=== PATIENT | male | born 1955 | race Caucasian/White ===

== ENCOUNTER 2022-08-18 05:47 | Inpatient (IN) | payer MEDICARE ==
[2022-08-17 12:30] LABS: BASOPHILS # (AUTO) 0.1 (0.0-0.1); BASOPHILS % 0.8 % (0.0-1.0); EOSINOPHILS # (AUTO) 0.3 (0.0-0.4); EOSINOPHILS % 3.7 % (0.0-6.0); HEMATOCRIT 47.7 % (38.2-49.6); HEMOGLOBIN 15.6 g/dL (14.0-18.0); LYMPHOCYTES # (AUTO) 1.9 (1.0-3.2); LYMPHOCYTES % 25.8 % (18.0-39.1); MEAN CORPUSCULAR HEMOGLOBIN 29.3 pg (28-32); MEAN CORPUSCULAR HGB CONC 32.7 g/dL (31-35); MEAN CORPUSCULAR VOLUME 89.5 fL (81-99); MONOCYTES # (AUTO) 0.8 (0.2-0.8); MONOCYTES % 11.1 % (4.4-11.3); NEUTROPHILS # (AUTO) 4.3 (2.1-6.9); NEUTROPHILS % 57.8 % (38.7-80.0); PLATELET COUNT 238 x10e3/uL (140-360); RED BLOOD COUNT 5.33 x10e6/uL (4.3-5.7); RED CELL DISTRIBUTION WIDTH 13.5 % (11.7-14.4)
[2022-08-17 12:52] LABS: ANION GAP 14.4 mmol/L (8-16); CALCIUM 9.1 mg/dL (8.4-10.2); CREATININE, SERUM 1.02 mg/dL (0.72-1.25); POTASSIUM 4.4 mmol/L (3.5-5.1)
[~2022-08-18] VITALS: Ht 182.9 cm; Wt 142.9 kg
[~2022-08-18 05:47] MED LIST: ASPIRIN81 MG PO; FINASTERIDE5 MG PO; FLOMAX0.4 MG PO; ISOSORBIDE MONO30 MG PO; LISINOPRIL2.5 MG PO; METOPROLOL TART50 MG PO; OXYBUTYNIN CHLOR5 MG PO; SIMVASTATIN20 MG PO; WARFARIN SODIUM3 MG PO
[2022-08-18] MEDS ORDERED: SODIUM CHLORIDE 0.9% 250ML 250 ML ONE (06:31)
[2022-08-18] MEDS ORDERED: GENTAMICIN 80MG/NS 100 ML 200 ML IV ONE (06:31)
[2022-08-18] MEDS ORDERED: Vancomycin IV 1 GM VIAL ONE (06:31)
[2022-08-18] MEDS ORDERED: SODIUM CHLORIDE 0.9% 1000ML 1,000 ML ONE (06:32)
[2022-08-18 07:21] LABS: INR 1.03; PROTHROMBIN TIME 14.4 seconds (11.9-14.5)
[2022-08-18 07:22] LABS: PARTIAL THROMBOPLASTIN TIME 30.1 seconds (23.8-35.5)
[2022-08-18] MEDS ORDERED: B&O 60MG R/S 60 MG SUPP PR ONE (07:44)
[2022-08-18] MEDS ORDERED: IOPAMIDOL 610MG/1ML 300 MG/ML VIAL IV ONE (07:44)
[2022-08-18] MEDS ORDERED: PIPERACILLIN/TAZOBACTAM 3.375 GM VIAL ONE (09:32)
[2022-08-18] MEDS ORDERED: ONDANSETRON HCL INJ 2MG/ML 2ML 2 MG/ML VIAL IV PRN (11:15)
[2022-08-18] MEDS ORDERED: DIPHENHYDRAMINE HCL 25 MG CAP PO PRN (11:15)
[2022-08-18] MEDS ORDERED: B&O 60MG R/S 60 MG SUPP PR PRN (11:15)
[2022-08-18] MEDS ORDERED: ACETAMINOPHEN/CODEINE 300MG - 30MG TAB PO PRN (11:15)
[2022-08-18] MEDS ORDERED: PHENAZOPYRIDINE HCL 100 MG TAB PO PRN (11:15)
[2022-08-18] MEDS ORDERED: PROMETHAZINE HCL (IM) 25 MG/ML VIAL IM ONE (11:27)
[2022-08-18] MEDS ORDERED: FENTANYL CITRATE/PF 100MCG/2 ML INJ ONE ×2 (11:28→12:49)
[2022-08-18 12:19] LABS: BASOPHILS % 0.4 % (0.0-1.0); EOSINOPHILS # (AUTO) 0.1 (0.0-0.4); EOSINOPHILS % 0.7 % (0.0-6.0); HEMATOCRIT 46.1 % (38.2-49.6); HEMOGLOBIN 14.6 g/dL (14.0-18.0); LYMPHOCYTES # (AUTO) 1.1 (1.0-3.2); LYMPHOCYTES % 13.5 % (18.0-39.1); MEAN CORPUSCULAR HEMOGLOBIN 29.3 pg (28-32); MEAN CORPUSCULAR HGB CONC 31.7 g/dL (31-35); MEAN CORPUSCULAR VOLUME 92.4 fL (81-99); MONOCYTES # (AUTO) 0.2 (0.2-0.8); MONOCYTES % 2.9 % (4.4-11.3); NEUTROPHILS # (AUTO) 6.7 (2.1-6.9); NEUTROPHILS % 81.9 % (38.7-80.0); PLATELET COUNT 211 x10e3/uL (140-360); RED BLOOD COUNT 4.99 x10e6/uL (4.3-5.7); RED CELL DISTRIBUTION WIDTH 13.5 % (11.7-14.4)
[2022-08-18 12:30] LABS: ANION GAP 18.7 mmol/L (8-16); CALCIUM 8.2 mg/dL (8.4-10.2); CREATININE, SERUM 1.02 mg/dL (0.72-1.25); POTASSIUM 4.7 mmol/L (3.5-5.1)
[2022-08-18] MEDS ORDERED: PROPOFOL IV EMULSION 10 MG/ML 20 ML VIAL ONE (12:45)
[2022-08-18] MEDS ORDERED: ONDANSETRON HCL INJ 2MG/ML 2ML 2 MG/ML VIAL ONE (12:45)
[2022-08-18] MEDS ORDERED: DEXAMETHASONE SOD PHOS INJ 4 MG/ML SDV ONE (12:45)
[2022-08-18] MEDS ORDERED: ROCURONIUM BROMIDE 10 MG/ML 5ML VIAL IV ONE (12:45)
[2022-08-18] MEDS ORDERED: NEOSTIGMINE 1 MG/ML 10ML VIAL ONE (12:45)
[2022-08-18] MEDS ORDERED: POVIDONE IODINE 0.05% 0.05 % ML PO ONE (12:45)
[2022-08-18] MEDS ORDERED: LIDOCAINE HCL 2% LOCAL INJ 5 ML SDV VIAL INJ ONE (12:45)
[2022-08-18] MEDS ORDERED: SEVOFLURANE INHAL SOLN 250 ML PEN BTL ONE (12:45)
[2022-08-18] MEDS ORDERED: GLYCOPYRROLATE INJ 0.2 MG/ML VIAL ONE (12:45)
[2022-08-18] MEDS ORDERED: MIDAZOLAM HCL 2 MG/2 ML VIAL ONE (12:49)
[2022-08-18 14:10] VITALS: BP 120/69
[2022-08-18 14:40] VITALS: BP 120/69
[2022-08-18] MEDS: VANCOMYCIN HCL 1.25 GM in SODIUM CHLORIDE 0.9% 250ML 250 ML IV SCH (16:58)
[2022-08-18] MEDS: DOCUSATE SODIUM 100 MG CAP PO SCH (17:36)
[2022-08-18] MEDS: D5.45%NS/KCL 20MEQ 1,000 ML IV SCH ×2 (17:37→18:15)
[2022-08-18 20:30] VITALS: BP 136/87
[2022-08-18 20:39] VITALS: BP 136/87
[2022-08-18] MEDS: SIMVASTATIN 20 MG TAB PO SCH (22:29)
[2022-08-18 23:55] VITALS: BP 105/60
[2022-08-19 01:25] VITALS: BP 105/60
[2022-08-19] MEDS: D5.45%NS/KCL 20MEQ 1,000 ML IV SCH ×3 (04:05→19:15)
[2022-08-19] MEDS: VANCOMYCIN HCL 1.25 GM in SODIUM CHLORIDE 0.9% 250ML 250 ML IV SCH ×2 (04:07→16:11)
[2022-08-19 04:28] VITALS: BP 128/76
[2022-08-19 04:57] LABS: BASOPHILS % 0.2 % (0.0-1.0); EOSINOPHILS % 0.1 % (0.0-6.0); HEMATOCRIT 44.4 % (38.2-49.6); HEMOGLOBIN 14.5 g/dL (14.0-18.0); LYMPHOCYTES # (AUTO) 1.4 (1.0-3.2); LYMPHOCYTES % 10.4 % (18.0-39.1); MEAN CORPUSCULAR HEMOGLOBIN 29.1 pg (28-32); MEAN CORPUSCULAR HGB CONC 32.7 g/dL (31-35); MONOCYTES # (AUTO) 1.3 (0.2-0.8); NEUTROPHILS # (AUTO) 10.4 (2.1-6.9); NEUTROPHILS % 78.8 % (38.7-80.0); PLATELET COUNT 205 x10e3/uL (140-360); RED BLOOD COUNT 4.99 x10e6/uL (4.3-5.7); RED CELL DISTRIBUTION WIDTH 13.5 % (11.7-14.4)
[2022-08-19 05:22] LABS: ANION GAP 13.4 mmol/L (8-16); CALCIUM 7.9 mg/dL (8.4-10.2); CREATININE, SERUM 0.91 mg/dL (0.72-1.25); POTASSIUM 4.4 mmol/L (3.5-5.1)
[2022-08-19 08:00] VITALS: BP 121/93
[2022-08-19 08:31] VITALS: BP 121/93
[2022-08-19] MEDS: DOCUSATE SODIUM 100 MG CAP PO SCH ×2 (09:54→16:10)
[2022-08-19] MEDS: LISINOPRIL 2.5 MG TAB PO SCH (09:54)
[2022-08-19] MEDS: ISOSORBIDE MONONITRATE 30 MG TAB CR PO SCH (09:55)
[2022-08-19] MEDS: OXYBUTYNIN CHLORIDE 5 MG TAB PO SCH (09:55)
[2022-08-19 11:48] VITALS: BP 104/69
[2022-08-19 20:00] VITALS: BP 109/68
[2022-08-19] MEDS: TAMSULOSIN HCL 0.4 MG CAP PO SCH ×2 (21:00→21:19)
[2022-08-19] MEDS: SIMVASTATIN 20 MG TAB PO SCH ×2 (21:00→21:20)
[2022-08-19] MEDS: FINASTERIDE 5 MG TAB PO SCH ×2 (21:00→21:20)
[2022-08-19] MEDS: METOPROLOL TARTRATE 50 MG TAB PO SCH (21:20)
[2022-08-20] VITALS (7 sets, daily range): BP systolic 115–131; BP diastolic 66–87
[2022-08-20] MEDS: D5.45%NS/KCL 20MEQ 1,000 ML IV SCH ×2 (03:15→11:06)
[2022-08-20] MEDS: VANCOMYCIN HCL 1.25 GM in SODIUM CHLORIDE 0.9% 250ML 250 ML IV SCH (05:00)
[2022-08-20 05:34] LABS: BASOPHILS # (AUTO) 0.1 (0.0-0.1); BASOPHILS % 0.8 % (0.0-1.0); EOSINOPHILS # (AUTO) 0.3 (0.0-0.4); EOSINOPHILS % 3.8 % (0.0-6.0); HEMATOCRIT 39.8 % (38.2-49.6); HEMOGLOBIN 13.2 g/dL (14.0-18.0); LYMPHOCYTES # (AUTO) 2.3 (1.0-3.2); LYMPHOCYTES % 27.5 % (18.0-39.1); MEAN CORPUSCULAR HGB CONC 33.2 g/dL (31-35); MEAN CORPUSCULAR VOLUME 87.5 fL (81-99); MONOCYTES % 11.5 % (4.4-11.3); NEUTROPHILS # (AUTO) 4.7 (2.1-6.9); NEUTROPHILS % 55.6 % (38.7-80.0); PLATELET COUNT 200 x10e3/uL (140-360); RED BLOOD COUNT 4.55 x10e6/uL (4.3-5.7); RED CELL DISTRIBUTION WIDTH 13.9 % (11.7-14.4)
[2022-08-20 06:04] LABS: ANION GAP 12.7 mmol/L (8-16); CREATININE, SERUM 0.88 mg/dL (0.72-1.25); POTASSIUM 3.7 mmol/L (3.5-5.1)
[2022-08-20] MEDS: METOPROLOL TARTRATE 50 MG TAB PO SCH (09:33)
[2022-08-20] MEDS: DOCUSATE SODIUM 100 MG CAP PO SCH ×2 (09:33→17:20)
[2022-08-20] MEDS: ISOSORBIDE MONONITRATE 30 MG TAB CR PO SCH (09:34)
[2022-08-20] MEDS: TAMSULOSIN HCL 0.4 MG CAP PO SCH (09:34)
[2022-08-20] MEDS: OXYBUTYNIN CHLORIDE 5 MG TAB PO SCH (09:34)
[2022-08-20] MEDS: LISINOPRIL 2.5 MG TAB PO SCH (09:34)
[2022-08-20] MEDS ORDERED: ONDANSETRON HCL 4 MG ORAL DISINTEGRATING TAB PO PRN (19:30)
[2022-08-20] MEDS ORDERED: PIPERACILLIN/TAZOBACTAM 3.375 GM VIAL ONE (21:57)
[2022-08-21] MEDS ORDERED: VANCOMYCIN HCL 1.25 GM in SODIUM CHLORIDE 0.9% 250ML 250 ML IV SCH (04:00)
[2022-08-25] MEDS ORDERED: WARFARIN SOD 2 MG TAB PO SCH (09:00)
[2022-08-25] MEDS ORDERED: ASPIRIN 81 MG CHEW TAB PO SCH (09:00)
== END 2022-08-20 22:43 | disposition home or self-care (01) | DRG 713 ==
LOC: OR 05:47 → PACU V 11:15 → MED/SURG 14:10
PROVIDERS: ADMIT Urology; ATTEND Urology
PROC: 0T778ZZ Dilation of Left Ureter, Via Natural or Artificial Opening Endoscopic (ICD-10-PCS; 2022-08-18)
PROC: BT1F1ZZ Fluoroscopy of Left Kidney, Ureter and Bladder using Low Osmolar Contrast (ICD-10-PCS; 2022-08-18)
PROC: 0VB08ZZ Excision of Prostate, Via Natural or Artificial Opening Endoscopic (ICD-10-PCS; principal; 2022-08-18 08:37)
PROC: 0TCB8ZZ Extirpation of Matter from Bladder, Via Natural or Artificial Opening Endoscopic (ICD-10-PCS; 2022-08-18 08:37)
DX: N40.1 Benign prostatic hyperplasia with lower urinary tract symptoms (principal); I48.20 Chronic atrial fibrillation, unspecified; Z68.41 Body mass index [BMI] 40.0-44.9, adult; R33.8 Other retention of urine; N21.0 Calculus in bladder; E66.01 Morbid (severe) obesity due to excess calories; I25.10 Atherosclerotic heart disease of native coronary artery without angina pectoris; Z95.5 Presence of coronary angioplasty implant and graft; E78.5 Hyperlipidemia, unspecified; E11.9 Type 2 diabetes mellitus without complications; Z79.01 Long term (current) use of anticoagulants; N32.81 Overactive bladder; Q54.9 Hypospadias, unspecified; E88.9 Metabolic disorder, unspecified; Z20.822 Contact with and (suspected) exposure to COVID-19
CPT/HCPCS: 36415; 71046; 74420; 80048; 80202; 83735; 84550; 85025; 85610; 85730; 88300; 88305; 93005; 94799; 99251; C1758; J1100; J1580; J2001; J2250; J2405; J2543; J2550; J2710; J3010; J3370; J7030; J7050

== ENCOUNTER 2022-08-21 22:49 | Emergency (ER) | payer MEDICARE ==
[~2022-08-21] VITALS: Ht 182.9 cm; Wt 142.9 kg
== END 2022-08-22 00:59 | disposition home or self-care (01) ==
LOC: ER 23:10
DX: Z46.6 Encounter for fitting and adjustment of urinary device (principal); I10 Essential (primary) hypertension; E78.5 Hyperlipidemia, unspecified; I25.10 Atherosclerotic heart disease of native coronary artery without angina pectoris; M54.9 Dorsalgia, unspecified; G89.29 Other chronic pain; I25.2 Old myocardial infarction
CPT/HCPCS: 99284